=== PATIENT | male | born 1990 | race Two or more races ===

== ENCOUNTER 2018-09-30 17:38 | Emergency (ER) | payer SELFPAY ==
[2018-09-30] MEDS ORDERED: KETOROLAC 30 MG/1 ML SDV IM ONE (17:53)
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
[2018-09-30 18:41] VITALS: BP 125/80
== END 2018-09-30 18:37 | disposition home or self-care (01) ==
DX: R07.89 Other chest pain (principal); F17.200 Nicotine dependence, unspecified, uncomplicated; V19.88XA Pedal cyclist (driver) (passenger) injured in other specified transport accidents, initial encounter
CPT/HCPCS: J1885